=== PATIENT | male | born 1975 | race Caucasian/White ===

== ENCOUNTER 2017-03-21 08:19 | Emergency (ER) | payer OTHER ==
[~2017-03-21] VITALS: Ht 190.5 cm; Wt 134.0 kg
[~2017-03-21 08:19] MED LIST: ADVAIR 500-501 EACH IH; ALLEGRA-D 241 TABLET PO; ALPRAZOLAM0.25 MG PO; CHANTIX0.5 MG PO; Cymbalta PO; FLONASE16 G1 NS; KEFLEX500 MG PO; MELATONIN5 M1 PO; PERCOCET 5/31 TABLET PO; PREDNISONE20 MG PO; RISPERDAL2 MG PO; TOPROL XL50 MG PO; VENTOLIN17 GM IH; ZITHROMAX Z-PA250 MG PO; ZOLOFT25 MG PO
[2017-03-21 08:54] VITALS: BP 145/93
== END 2017-03-21 08:56 | disposition home or self-care (01) ==
LOC: EME 08:19
DX: R45.1 Restlessness and agitation (principal); G47.00 Insomnia, unspecified; F41.9 Anxiety disorder, unspecified; T43.595A Adverse effect of other antipsychotics and neuroleptics, initial encounter; F31.9 Bipolar disorder, unspecified; I10 Essential (primary) hypertension; J44.9 Chronic obstructive pulmonary disease, unspecified; F17.200 Nicotine dependence, unspecified, uncomplicated
CPT/HCPCS: 99281; 99284